=== PATIENT | male | born 1950 | race Caucasian/White ===

== ENCOUNTER 2017-08-03 20:33 | Inpatient (IN) | payer OTHER ==
[~2017-08-03] VITALS: Ht 183 cm; Wt 125.3 kg
[2017-08-03] VITALS (7 sets, daily range): BP systolic 114–135; BP diastolic 65–91
--- NOTE | ~2017-08-03 | S ---
[facility] [place] [address] SURGICAL PATH RPT PROCEDURE Name: SHIRA WARD Room #: 361-P DIS IN M.R.#: [id number] Admission: 08/03/17 Date of : 48 Discharge: 08/22/17 Report #: [id number] Path Case #: [id number] PATHOLOGY REPORT COLLECTION DATE: 08/09/2017 RECEIVED DATE: 08/09/2017 SUBMITTING PHYS: Dr. Praveen Stone OTHER PHYS: Dr. Mukul Magana ADDENDUM REPORT (Order Date: 08/15/2017 09:26) ADDENDUM COMMENT: At the request of the [facility] cancer committee, mismatch repair (MMR) protein immunohistochemical staining was performed. Specimen: Formalin fixed paraffin embedded tissue Specimen ID: [id number] Reason for testing: To evaluate for evidence of defective mismatch repair proteins. Method: Immunohistochemical staining for the presence or absence of protein expression of one or more of the following MMR protein markers: MLH1, MSH2, MSH6 and PMS2. Tumor type: Mucinous adenocarcinoma Results: MLH1 - Lost MSH2 - Preserved MSH6 - Preserved PMS2 - Lost Mismatch Repair Status: MMR Deficient (MMR-D) Interpretation: (MMR-D) The absence of expression for one or more MMR protein markers within tumor cells is suggestive for defective mismatch repair function often associated with microsatellite instability (MSI). MMR testing by IHC is a screening test and MMR-D cases require confirmation and additional workup by molecular based methodologies. Suggest clinical correlation and follow up to establish the need for potential genetic testing, recurrence risk evaluation and treatment options. These test results are designed for screening purposes only and are useful tools in identifying cancer patients that are more likely to have Ham Syndrome related diagnoses. Tests should be interpreted in the context of clinical findings, family history and laboratory data. Abnormal IHC results for MMR protein expression are not considered diagnostic for Ham Syndrome. (MAP:[facility]; 08/15/2017) Professional services performed under supervision of [facility] at [address] [place] [address]. Technical services performed by [facility] under supervision of a [facility] [address] [place] [address] SURGICAL PATH RPT PROCEDURE Name: SHIRA WARD Room #: 361-P DIS IN .R.#: [id number] Admission: 08/03/17 Date of : 48 Discharge: 08/22/17 Report #: [id number] Path Case #: [id number] Director at [address] [place] [address], [facility] [address] [place] [address]. ELECTRONICALLY SIGNED BY: Trent Lee M.D. DATE/TIME:08/15/2017 09:53 SPECIMEN(S) RECEIVED: A.Right colon B.Right colon staple lines * * * * * * * * * * * * FINAL DIAGNOSIS: A. Colon, right, right hemicolectomy: - Invasive mucinous adenocarcinoma, moderately differentiated. - Margins uninvolved by carcinoma. - Seventeen benign lymph nodes (0/17). - Appendix with fibrosis. - Acute serositis. - See synoptic report and comment. B. "staple lines": - Colon and small bowel, negative for carcinoma. SPECIMEN Specimen: Terminal ileum Cecum Appendix Ascending colon Procedure: Right hemicolectomy TUMOR Primary Tumor Site: Right (ascending) colon Histologic Type: Mucinous adenocarcinoma Histologic Grade: Low-grade (well differentiated to moderately differentiated) Tumor Size: Greatest dimension (cm): 8.5 Tumor Deposits: Not identified Tumor Extent Site(s) of Direct Extent of Tumor: Right (ascending) colon Microscopic Tumor Extension: Tumor invades through the muscularis propria into the subserosal adipose tissue or the nonperitonealized pericolic or perirectal soft tissues but does not extend to the serosal surface Macroscopic Tumor Perforation: Not Identified Accessory Tumor Findings Lymph-Vascular Invasion: Not identified Perineural Invasion: Not identified Treatment Effect (applicable to carcinomas treated with neoadjuvant therapy): Not known [address] [address] SURGICAL PATH RPT PROCEDURE Name: SHIRA WARD Room #: 361-P DIS IN M.R.#: [id number] Admission: 08/03/17 Date of : 48 Discharge: 08/22/17 Report #: [id number] Path Case #: [id number] MARGINS All margins uninvolved by invasive carcinoma Distance of Invasive Carcinoma from Closest Margin: Specify (cm): 3.5 Specify Margin: Circumferential (Radial) or Mesenteric For Resection Specimens Only Proximal Margin: Uninvolved by invasive carcinoma Distance of Tumor from Margin: Specify (cm): 17 Distal Margin: Uninvolved by invasive carcinoma Distance of Tumor from Margin (required only for rectal tumors): Specify (cm): 6 Circumferential (Radial) Margin: Not applicable Mesenteric Margin: Uninvolved by invasive carcinoma Distance of Tumor from Margin: Specify (cm): 3.5 LYMPH NODES Regional Lymph Nodes: Number of Lymph Nodes Examined: Specify number: 17 Number of Lymph Nodes Involved: Specify number: 0 STAGE (PTNM) Primary Tumor (pT): pT3: Tumor invades through the muscularis propria into pericolorectal tissues Regional Lymph Nodes (pN): pN0: No regional lymph node metastasis ADDITIONAL FINDINGS Additional Pathologic Findings: Other: Acute serositis COMMENT: This case is co-reviewed by Dr. Ruth Ann Lu. MSI status will be reported as an addendum. PATHOLOGIST: Trent Lee M.D. REPORT ELECTRONICALLY SIGNED BY: Trent Lee M.D. DATE/TIME: 08/12/2017 09:55 * * * * * * * * * * * * GROSS PATHOLOGY: A. The specimen is received in formalin, labeled "Errola, right colon", and consists of a previously opened portion of large bowel including cecum, appendix, attached portion of terminal ileum and mesenteric soft tissue weighing 601 g. It consists of a colonic segment (20 cm middle length 10 cm in circumference), ileum (12.[address] [address] SURGICAL PATH RPT PROCEDURE Name: ERROLSHIRA Canela Room #: 361-P [facility] IN .R.#: [id number] Admission: 08/03/17 Date of : 48 Discharge: 08/22/17 Report #: [id number] Path Case #: [id number] in length 4.5 cm in circumference), appendix (4 cm in length 1.1 cm in diameter) and attached mesenteric soft tissue measuring up to about 6 cm in width. The serosal surface located about 8 cm from the colonic resection margin has an area of slight retraction measuring about 1.5-2 cm. Portions of the serosa and mesenteric soft tissue surfaces are marked with dye. Located 17 cm from the ileal resection margin, 6 cm from the colonic resection margin and 3.5 cm from the closest mesenteric resection margin is an elevated fungating neoplasm consistent with carcinoma which is nearly circumferential and measures 8.5 0.5 cm. The neoplasm has elevated peripheral borders and a central concave region. It is located about 5 cm distal to the ileal cecal valve. The tumor invades the muscularis propria and has a few areas of possible superficial invasion of the adjacent pericolonic adipose. Near the midportion of the appendix is a possible saccular out pouched area of the appendiceal wall measuring about 0.5 cm in diameter. Adjacent to the neoplasm is a black tattoo. The remainder of the colonic mucosa away from the neoplasm is without polyps or additional masses. Several lymph nodes are identified with the attached mesenteric soft tissues. Copy Reader sections are submitted as follows: En face sections of ileal, colonic and mesenteric resection margins A1, A2 and A3 respectively, tumor and adjacent serosa A4, tumor with areas of possible invasion of pericolonic adipose A5- A 6, tumor and adjacent colonic wall A7, appendix and adjacent saccular area A 8, other sections of appendix A9 and several possible mesenteric lymph nodes in their entirety A 10- A 12. B. The specimen is received in formalin, labeled "Boonstra, right: Staple lines", and a single elongate portion of colonic wall measuring about 5.5 1.5 cm and the mucosal surface and up to 0.3 cm in thickness. Attached to one aspect is a suture. Section reveals some ronald within the tissue including a staple line in the midportion measuring about a centimeter in length. The mucosal surface is without significant abnormalities. All tissue is submitted designated B1-B2. (CW; 08/10/2017) INTRAOPERATIVE CONSULTATION CLINICAL HISTORY: Pre-Op diagnosis: Right colon cancer Postop diagnosis: Same INITIAL CPT CODE(S): A; 88404, 37581, 81885, 61113, 07396, 34291, 89632 B; 76049 [facility] at [address] [address] SURGICAL PATH RPT PROCEDURE Name: SHIRA WARD Room #: 361-P [facility] IN M.R.#: [id number] Admission: 08/03/17 Date of : 48 Discharge: 08/22/17 Report #: [id number] Path Case #: [id number] , [place] [address] [facility] at [address] [place] [address], [address], [place] [address]. PROCEDURE REPORT (Order Date: 08/17/2017 00:00) COMMENT: The slides were marked for testing, and sent at the request of Dr. Praveen Stone. BRAF testing was performed by [facility] on block A7. Please see SCANNED IMAGES under LABORATORY for separate report of results. (MAP:[facility]; d/t: 08/23/2017) PATHOLOGIST: Trent Lee M.D. REPORT ELECTRONICALLY SIGNED BY: Trent Lee M.D. DATE/TIME: 08/23/2017 11:18 [facility] [address] [place] [address] PHONE: [phone] DIRECTOR: Iván Garcia M.D. * * * END OF REPORT * * *
--- NOTE | ~2017-08-03 | HC ---
[facility] [place] [address] CONSULTATION Name: SHIRA WARD Room #: 350-P ADM IN M.R.#: [id number] Admission: 08/03/17 Attend Phys: Mukul Castro DO Discharge: Date of : 48 Report #: [id number] THIS REPORT FOR: //name// CC: [facility] physician/PCP Mukul Magana DATE OF SERVICE: 08/09/2017 REASON FOR CONSULTATION: Hepatic flexure mass. HISTORY OF PRESENT ILLNESS: This is a 66-year-old male patient who was transferred to [facility] from [facility] on 08/03/2017, with an acute lower GI bleed. The patient presented there with hematochezia. He underwent a bleeding scan, found to be negative. He underwent both upper and lower endoscopy. His upper endoscopy was normal with a properly positioned PEG tube. His colonoscopy revealed a malignant appearing mass in the right colon with multiple other polyps removed as well as left-sided diverticulosis. I have been asked to see the patient for further evaluation and treatment. Notably, the mass was large, near obstructing, and quite friable on endoscopy. PAST MEDICAL HISTORY: Significant for left parietal CVA with right hemiparesis, expressive aphasia, hyperlipidemia, COPD, history of alcohol use, anemia, and depression. PAST SURGICAL HISTORY: Includes previous tonsillectomy and adenoidectomy, cholecystectomy and repair of a right tib-fib fracture with skin grafting. MEDICATIONS: Include aspirin, Plavix, atorvastatin, hydrocodone, Lidoderm patch, Soma, venlafaxine, and Ventolin inhaler. He receives Jevity tube feeds. ALLERGIES: To CODEINE. FAMILY HISTORY: Reviewed and noncontributory to this hospitalization. SOCIAL HISTORY: The patient had used both alcohol and tobacco in the past. REVIEW OF SYSTEMS: As per history of present illness. Other review of systems is obtained from the medical record as he has severe expressive aphasia. PHYSICAL EXAMINATION: VITAL SIGNS: Temperature 99.5, blood pressure 133/70, pulse 84, respirations 16, height 6 feet, weight 264 pounds, BMI 36. GENERAL: This is a 66-year-old male patient, in no acute distress. He has expressive aphasia. [address] [address] CONSULTATION Name: SHIRA WARD Room #: 350-P ADM IN M.R.#: [id number] Admission: 08/03/17 Attend Phys: Mukul Castro DO Discharge: Date of : 48 Report #: [id number] HEENT: Atraumatic, normocephalic with moist mucosal membranes. NECK: Supple. No appreciable lymphadenopathy. Trachea is midline. CHEST: Clear bilaterally. No crackles or wheezes. CARDIOVASCULAR: Regular rate and rhythm. ABDOMEN: Soft and nondistended with no palpable masses. An irreducible umbilical hernia is present. He has no rebound or guarding. A PEG tube is present in the left upper quadrant of the abdomen. GENITOURINARY: Normal external male genitalia with a Jones catheter in place. EXTREMITIES: No clubbing or cyanosis; he has venous stasis changes of both lower extremities and obvious right lower leg deformity with fluctuant area. NEUROLOGIC: Expressive aphasia with right-sided weakness. PSYCHIATRIC: Unable to assess. SKIN AND INTEGUMENTARY: No acute inflammatory changes, rashes, or lesions are present. LABORATORY DATA: CBC from this morning shows a white blood cell count of 7.0, hemoglobin 11.3, hematocrit 34.2 and platelets 222 with 68% segmented neutrophils. His basic metabolic profile shows sodium 142, potassium 3.3, chloride 105, CO2 of 29, BUN 4, creatinine 0.5, and glucose 92. RADIOLOGIC STUDIES: CT of the abdomen and pelvis showed stranding around the right colon with occasional diverticula and small gas collections as well as a small amount of gas adjacent to the hepatic flexure, infiltrate was also present in the right lung base. No free intraperitoneal air or abscess was identified. IMPRESSION AND PLAN: This is a 66-year-old male patient with history of a recent stroke this past June who presented with a gastrointestinal bleed and was found to have an unresectable hepatic flexure mass, near obstructing, and the likely cause of the gastrointestinal bleed. A CEA level has been ordered. I discussed the pathophysiology and natural history of a nonresectable polyp/possible colon cancer as well as treatment alternatives and surgical options. The patient would benefit from a right hemicolectomy due to strong suspicion of malignancy. We discussed the risks, benefits and expectations of robotic-assisted right hemicolectomy in detail. The patient expressed understanding and wishes to proceed. He will be taken to the operating room at the next earliest availability. I sincerely appreciate the opportunity to participate in the care of this patient and we will leave further recommendations and orders in the electronic medical record as appropriate. Thank you very much. <ELECTRONICALLY SIGNED> By: Rigoberto Magana MD, FACS 08/10/17 0000 1539 1707 Rigoberto Magana MD, FACS /nt
--- NOTE | ~2017-08-03 | P ---
[facility] [place] [address] PROCEDURE REPORT Name: EUGENIESTACIERolaSHIRA Armendariz Room #: 350-P ADM IN M.R.#: [id number] Admission: 08/03/17 Attend Phys: Mukul Castro DO Discharge: Date of : 48 Report #: [id number] THIS REPORT FOR: //name// CC: [facility] physician/PCP Mukul Stone MD DATE OF SERVICE: 08/08/2017 DATE OF SERVICE: 08/08/2017 PROCEDURE PERFORMED: Colonoscopy with polypectomies and tattoo. HISTORY OF PRESENT ILLNESS: The patient is a 66-year-old male with GI bleed, upper endoscopy was just performed, which was negative. He had been on aspirin and Plavix since a recent CVA. This has now been held. Plan is for colonoscopy. DESCRIPTION OF PROCEDURE: The risks and benefits of the procedure were explained to the patient. Those risks including but not limited to bleeding, perforation, the risk of sedation. He understood these risks and gave informed consent. Sedation was given using propofol per anesthesia. Next, a digital rectal exam was initially performed, which was normal. Next, using a standard [employer] colonoscope, the scope was placed in the patient's anus and advanced under direct vision to what appears to be the ascending colon, in which a malignant-appear mass versus large near obstructing polyp was encountered. This included the entire circumference of the colon in this area. It appears again we are in the proximal ascending colon, but I was not able to pass the scope through this area. Multiple biopsies were obtained and the edges were tattooed. Just distal to this were 2 lipomas, which were submucosal, I did not remove. Also, in then the ascending colon were 3 other polyps. These ranged in size from 5 to 7 mm, these were removed by snare cautery. In the transverse colon, a total of 2 polyps were also removed by snare cautery. They were 4 to 6 mm in size. In the descending colon, a 6-mm sessile polyp or partially pedunculated polyp was removed by snare cautery. Multiple diverticula were noted throughout the sigmoid colon. In the rectum, there was a 4 mm sessile polyp. This was removed by cold forceps. There was no active bleeding today; however, the malignant-appearing mass did have evidence of friability. The scope was then withdrawn and the procedure terminated. The patient tolerated the procedure well. IMPRESSION: 1. Malignant-appearing mass in the right colon, suspect ascending colon. 2. Multiple other polyps removed today. 3. Left sided diverticulosis. [address] [address] PROCEDURE REPORT Name: SYLVIASHIRA Kala Room #: 350-P [facility] IN M.R.#: [id number] Admission: 08/03/17 Attend Phys: Mukul Castro DO Discharge: Date of : 48 Report #: [id number] RECOMMENDATIONS: 1. Await biopsy results. 2. We will proceed with a CT scan of the abdomen and pelvis. 3. Surgical consultation for resection of the mass in the near future. Thank you for allowing me to participate in his care. <ELECTRONICALLY SIGNED> By: Tan Roque MD 08/09/17 0906 [id number] 1531 Tan Roque MD /nt
--- NOTE | ~2017-08-03 | EKG ---
[address] [address] ELECTROCARDIOGRAM REPORT Name: SHIRA WARD Room #: 246-P ADM IN M.R.#: [id number] Admission: 08/03/17 Attend Phys: Mukul Castro DO Discharge: Date of : 48 Report #: [id number] THIS REPORT FOR: //name// [facility] Test Date: 2017-08-11 Test Time: 06:44:30 Pat Name: SHIRA WARD Department: Room: 246 Gender: M Embroidery Operator: ROSI : 1950 Requested By: Mukul Castro Order Number: [id number] MD: Rich Herring Measurements Intervals [place] Rate: 127 P: 49 MS: 138 QRS: 47 QRSD: 87 T: 12 QT: 299 QTc: 435 Interpretive Statements Sinus tachycardia with atrial premature complexes Abnormal R-wave progression, early transition Nonspecific ST and T wave abnormality Artifact in lead(s) I,II,III,aVR,aVL,aVF,V1,V6 No previous ECG available for comparison Electronically Signed On 08-11-2017 7:55:06 CDT by Rich Herring [email or web address] <ELECTRONICALLY SIGNED> By: Rich Herring MD, [facility] 08/11/17 [phone] Rich Herring MD, [facility] /EPI
--- NOTE | ~2017-08-03 | P ---
[facility] [place] [address] PROCEDURE REPORT Name: SYLVIASHIRA Armendariz Room #: 350-P ADM IN M.R.#: [id number] Admission: 08/03/17 Attend Phys: Mukul Castro DO Discharge: Date of : 48 Report #: [id number] THIS REPORT FOR: //name// CC: [facility] physician/PCP Mukul Stone MD DATE OF SERVICE: 08/08/2017 PROCEDURE PERFORMED: Upper endoscopy. HISTORY OF PRESENT ILLNESS: The patient is a 66-year-old male with a history of CVA recently, he has residual right hemiparesis and aphasia, came in with a GI bleed, he has been on aspirin and Plavix since his CVA, unclear if he has ever had a previous endoscopy. His aspirin and Plavix has been held since admission. He had a bleeding scan that was initially negative. Plan is for EGD and colonoscopy today. PROCEDURE: The risks and benefits of the procedure were explained to the patient, those risks including, but not limited to bleeding, perforation, and the risk of sedation. He understood these risks and gave informed consent. Sedation was given using propofol per anesthesia. Next, using a standard [employer] upper endoscope, the scope was placed in the patient's mouth and advanced under direct vision through the esophagus, stomach and into the second portion of the duodenum. The esophagus was normal throughout. The GE junction was normal. Overall, the gastric mucosa was normal. The patient's PEG tube balloon was noted to be in good position in the mid body of the stomach. The pylorus was normal and patent. The duodenal bulb, first and second portion were all normal. There was no evidence of bleeding, no ulcerations. The scope was then withdrawn and the procedure terminated. The patient tolerated the procedure well. IMPRESSION: 1. PEG tube in proper position. 2. Otherwise, normal upper endoscopy. RECOMMENDATIONS: We will proceed with colonoscopy next today. Thank you for allowing me to participate in his care. <ELECTRONICALLY SIGNED> By: Tan Roque MD 08/09/17 0906 [id number] [id number] Tan Roque MD /nt
--- NOTE | ~2017-08-03 | O ---
[facility] [place] [address] OPERATIVE REPORT Name: EUGENIESTACIESHIRA Canela Room #: 350-P ADM IN M.R.#: [id number] Admission: 08/03/17 Attend Phys: Mukul Castro DO Discharge: Date of : 48 Report #: [id number] THIS REPORT FOR: //name// CC: Tan Roque MD [facility] physician/PCP Mukul Magana MD DATE OF SERVICE: 08/09/2017 SURGEON: Rigoberto Magana MD GAS ENGINE MECHANIC: Clarisse Simpson NP PREOPERATIVE DIAGNOSES: 1. Hepatic flexure mass. 2. Left hemispheric stroke with right hemiparesis, expressive aphasia and dysphagia. 3. Chronic obstructive pulmonary disease. 4. Hyperlipidemia. 5. Right lower extremity deformity. 6. Umbilical hernia. POSTOPERATIVE DIAGNOSES: 1. Hepatic flexure mass. 2. Left hemispheric stroke with right hemiparesis, expressive aphasia and dysphagia. 3. Chronic obstructive pulmonary disease. 4. Hyperlipidemia. 5. Right lower extremity deformity. 6. Incarcerated umbilical hernia. PROCEDURES: 1. Robotic-assisted, converted to open right hemicolectomy. 2. Partial omentectomy. 3. Primary repair of incarcerated umbilical hernia. 4. Placement of topical wound VAC/Prevena. 5. This is a modifier 22 operation based on the patient's obesity with a BMI of 36, difficult visualization despite adequate positioning, adherence of the colon to the liver and duodenum, friability of the colon associated with the mass, and a short, fat mesentery. The operation was substantially longer than a typical robotic/laparoscopic-assisted right hemicolectomy. It required conversion to an open procedure. [facility] [address] [place] [address] OPERATIVE REPORT Name: SHIRA WARD Room #: 350-P [facility] IN M.R.#: [id number] Admission: 08/03/17 Attend Phys: Mukul Castro DO Discharge: Date of : 48 Report #: [id number] ANESTHESIA: General endotracheal anesthesia and local anesthetic. ESTIMATED BLOOD LOSS: 50 mL. SPECIMEN: Right colon. COMPLICATIONS: None appreciated. INDICATIONS FOR PROCEDURE: This is a 66-year-old male patient who was transferred to [facility] with a GI bleed. The patient had been on Plavix for a recent left hemispheric stroke and has had a PEG tube in place for dysphagia. The patient has expressive aphasia as well. He underwent both upper and lower endoscopy. Lower endoscopy revealed a near obstructing colonic mass felt to be present in the hepatic flexure or ascending colon. The scope was not able to be traversed beyond the mass. The mass itself was friable and was felt to be the cause of the lower GI bleed. The patient underwent a CT of the abdomen and pelvis, which showed no evidence for metastasis. The patient presents today for robotic-assisted laparoscopic right hemicolectomy. OPERATIVE FINDINGS: Upon entrance into the abdominal cavity, the area of colon that was tattooed by Dr. Roque was present just distal to the hepatic flexure. The tattooed area itself was soft; however, just proximal to this area, the colon was more firm and friable. This area was stuck to the underside of the liver and dissection in this area was quite difficult. Due to the friability of the colon, a colotomy was created in this area and ultimately this necessitated conversion to an open procedure. Due to the patient's body habitus and obesity, visualization was difficult as well despite extreme positioning. The patient had moderate amount of intra-abdominal fat. After opening the patient, I was able to resect the mass with good margin. There were no palpable involved lymph nodes. The liver itself was smooth without evidence for metastases and no peritoneal metastases were visible. The PEG tube was intact. The stomach appeared otherwise normal. Small bowel was run from the ligament of Treitz to the ileocecal valve and the small bowel appeared normal without evidence for obstruction. After creation of the [id number] stapled ileotransverse colon resection, there was no tension on the anastomosis. The anastomosis was palpably patent. No other significant intra-abdominal pathology was identified other than an incarcerated umbilical hernia, which was reduced at the time the abdomen was opened. At the conclusion of the operation, the sponge, needle, and instrument counts were correct. The hernia was closed primarily with closure of the midline abdominal wall fascia. DESCRIPTION OF PROCEDURE IN DETAIL: After the risks, benefits, and expectations of the operation were discussed in detail with the patient, informed consent was obtained. The patient was identified in the preoperative holding area. He was given IV antibiotics as documented in the chart in line with SCIP metrics. The [address] [address] OPERATIVE REPORT Name: SHIRA WARD Room #: 350-P [facility] IN M.R.#: [id number] Admission: 08/03/17 Attend Phys: Mukul Castro DO Discharge: Date of : 48 Report #: [id number] patient was then taken to the operating room and he was placed in the supine position. SCDs were placed on the patient's left lower extremity. The patient was given IV sedation and he was intubated without incident. The operating room table was then rotated 180 degrees to accommodate for the da Lopez robot. The patient's abdomen was prepped and draped in the standard sterile fashion. A time-out was performed to identify the correct patient and procedure. Local anesthetic was infiltrated into the skin and subcutaneous tissue in the left periumbilical area where a curvilinear incision was made with a #15 blade scalpel. Dissection was carried down to the umbilical hernia sac. The sac was dissected free. A 5 mm Visiport was then placed intraperitoneally with a 0-degree angled laparoscope. Pneumoperitoneum was achieved with insufflation of carbon dioxide to 15 mmHg. A 30-degree angled laparoscope was inserted. Da Lopez ports were then placed in the right lower quadrant and lower midline under direct visualization after local anesthetic was infiltrated into the skin and subcutaneous tissue and appropriately sized incisions were made. Additional 12 mm ports were placed in the left lower quadrant (the camera port) and the left mid abdomen using a similar technique. The robot was then docked to the da Lopez ports. The 30-degree angled laparoscope was inserted, facing down. Instruments were then placed. All grasping was performed with atraumatic graspers. The patient had been placed in the reverse Trendelenburg position, rotated to his left. Adhesions from the omentum to the falciform ligament were present and these were carefully taken down with electrocautery and appropriate traction. The tattooed area was visible. Due to the patient's body habitus, the right colon was unable to be easily visualized and decision was made to undock the robot, reposition the patient, and redocked the robot. The patient was placed in extreme reverse Trendelenburg position and rotation to his left. The robot was then redocked to the da Lopez ports. This helped to facilitate visualization of the hepatic flexure to a greater extent; however, the right colon was still somewhat difficult to visualize. The omentum was divided off of the colon with electrocautery. The hepatic flexure was then opened with the intuitive vessel sealer. Dissection was carried medially to identify an area of proximal transection. The omentum was divided off the colon in this area as well. Dissection was carried more laterally and the colon was quite adherent to the liver. The tissue in this area was firm. The duodenum was not visualized at this point in time. Due to the friability of the colon, a small colotomy was appreciated and this was in an area where polypoid mass was present. There was minimal spillage of fecal fluid. Decision was made to convert to an open procedure. The robot was undocked from the ports. A sharp #10 blade scalpel was used to make a vertical midline incision in the upper abdomen. Electrocautery was then used to dissect through the subcutaneous tissue down the fascia. The fascia and peritoneal lining were then opened along the length of the incision to include the incarcerated umbilical hernia. The [address] [place] [id number] OPERATIVE REPORT Name: SYLVIASHIRA R Room #: 350-P [facility] IN M.R.#: [id number] Admission: 08/03/17 Attend Phys: Mukul Castro DO Discharge: Date of : 49 Report #: [id number] mm port site fascial openings were closed with 0 PDS suture prior to opening the patient using the laparoscope. The colotomy was oversewn to prevent significant spillage of fecal fluid. The adherent area was then carefully taken down off the liver and the underlying duodenum was able to be visualized. The duodenum was protected throughout. The hepatic flexure was more fully taken down as was the colon along the white line. Dissection was carried down to the cecum where the terminal ileum was seen entering the colon. The mesentery was then opened and divided. A blue load ALBERTO stapler was used to staple and divide the terminal ileum. The distal transection point was then identified 10 cm from the tattooed area. A mesenteric window was created in this area as well. A blue load ALBERTO stapler was used to staple and divide the colon. The mesentery was then divided with the Ethicon x 1 energy device with good hemostasis. The colon and terminal ileum were removed to be sent for specimen. Prior to being sent off, the colon was opened on the backtable to demonstrate the polypoid mass, which was 5 cm long and nearly circumferential. There was some distention of the colon proximal to the mass. Creation of the kbxb-se-artz stapled anastomosis was undertaken next. The antimesenteric corners were excised and each limb of the 75 mm blue load ALBERTO stapler was advanced on each limb of the colon and small bowel. The stapler was then connected and fired to create the htap-nw-ugtp anastomosis. The common enterocolotomy was then approximated with Allis clamps. A blue load TX 60 mm stapler was then used to staple off the common enterocolotomy. The excess tissue was excised. Stapler was removed. The crotch of the anastomosis was reinforced with an anti-tension 3-0 PDS suture. A running 3-0 PDS suture was used to close the mesenteric defect in a running fashion. Interrupted 3-0 PDS Lembert sutures were used to imbricate the staple line. The anastomosis was palpably patent without tension. The abdominal cavity was then copiously irrigated and suctioned until return of all drainage ran clear. After ensuring final hemostasis and that the sponge, needle and instrument counts were correct, the 19-Gu[place] Corey drain was advanced through the abdominal wall and brought out through the right lower quadrant port site opening. The drain was secured to the skin with a 2-0 nylon suture. The drain was positioned intraabdominally along the right pericolic gutter up to the subhepatic space. After ensuring final hemostasis, the midline abdominal wall fascia was closed with a running looped #1 PDS suture. The incarcerated umbilical hernia had been reduced and the fascia closed in this area to repair the hernia. The wound was then irrigated. [place] were used for skin closure. The remaining port site incisions were closed with the skin stapler as well. The skin was then cleansed and dried. The Prevena topical wound VAC device was then applied to the midline incision. A good seal was present after connecting the tubing to the device. The patient tolerated the procedure well. He was awakened, extubated, and taken [address] [address] OPERATIVE REPORT Name: SHIRA WARD Room #: 350-P [facility] IN M.R.#: [id number] Admission: 08/03/17 Attend Phys: Mukul Castro DO Discharge: Date of : 48 Report #: [id number] to recovery room in stable condition with no apparent intraoperative complications. <ELECTRONICALLY SIGNED> By: Rigoberto Magana MD, FACS 08/10/17 0000 1558 1728 Rigoberto Magana MD, FACS /nt
--- NOTE | ~2017-08-03 | HC ---
[facility] [place] [address] CONSULTATION Name: SYLVIASHIRA Kala Room #: 246-P ADM IN M.R.#: [id number] Admission: 08/03/17 Attend Phys: Mukul Castro DO Discharge: Date of : 48 Report #: [id number] THIS REPORT FOR: //name// CC: [facility] physician/PCP Mukul Castro DATE OF SERVICE: 08/11/2017 REASON FOR CONSULTATION: Acute respiratory failure. Forty minutes critical care time. IMPRESSION: 1. Acute respiratory failure requiring BiPAP. 2. Right lower lobe aspiration pneumonia, healthcare associated. 3. Postoperative day 2 right hemicolectomy, partial omentectomy with repair of incarcerated umbilical hernia. 4. Sepsis. 5. History of left MCA with right hemiparesis, aphasia, dysphagia. 6. History of chronic obstructive pulmonary disease. 7. Peripheral edema. 8. History of tib-fib fracture, right leg. PLAN: Continue on BiPAP. The worry is that if he has vomiting again, he will aspirate, but we are trying to avoid intubation. We will try to put the PEG tube to suction if possible. We will monitor closely. Surgery is also involved as well as GI. HISTORY OF PRESENT ILLNESS: A 66-year-old male transferred for lower GI bleed. Colonoscopy showed malignant-appearing mass right colon. The patient was taken to surgery on 08/09/2017, stable, had nausea, vomiting this morning and likely aspiration with chest x-ray showing right infiltrate. No fever or chills. He awakens. PAST MEDICAL HISTORY: Allergies to CODEINE. MEDICATIONS: Include cefoxitin, albuterol, fentanyl. FAMILY HISTORY: Cancer. SOCIAL HISTORY: Positive tobacco and ETOH in the past. The patient is unable to give review of systems, but has a history of CVA, on aspirin and Plavix since June 2017, chronic alcoholic liver disease, left middle cerebral artery bleed, right parietal infarct, PEG tube June 2017, COPD, muscle spasms, depression. PAST SURGICAL HISTORY: Surgeries have included tonsillectomy, cholecystectomy, [facility] [address] [place] [address] CONSULTATION Name: SYLVIASHIRA R Room #: 246-P [facility] IN ..#: [id number] Admission: 08/03/17 Attend Phys: Mukul Castro DO Discharge: Date of : 48 Report #: [id number] right tib-fib. FAMILY HISTORY: Positive for cancer. PHYSICAL EXAMINATION: VITAL SIGNS: Temperature 100.2, pulse 120, respirations 24. GENERAL: Alert, on BiPAP. EYES: Negative icterus. NECK: No JVD. No adenopathy. LUNGS: Coarse bilateral. HEART: Regular. ABDOMEN: Bowel sounds present, tender. PEG tube in place. EXTREMITIES: Showed positive edema, right hemiparesis. LABORATORY DATA: White count 15.9, hemoglobin 11.2, platelets 229, no bands. PH 7.426, pCO2 of 40, pO2 of 55 on room air. Lactate 1.44, CA 8.6. By: 1155 Josefa Valles MD /leandro
--- NOTE | ~2017-08-03 | HC ---
[facility] [place] [address] CONSULTATION Name: SHIRA WARD Room #: 361-P ADM IN M.R.#: [id number] Admission: 08/03/17 Attend Phys: Mukul Castro DO Discharge: Date of : 48 Report #: [id number] THIS REPORT FOR: //name// CC: MERCED Wolff DO [facility] physician/PCP Mukul Magana MD REASON FOR CONSULTATION: Resected, stage 2 colon cancer. HISTORY OF PRESENT ILLNESS: The patient is a 66-year-old gentleman, who resides in a snf down in [place], [place]. Evidently, he had a GI bleed and subsequent evaluation on a colonoscopy by Dr. Roque, found a mid transverse adenocarcinoma. This was resected by Dr. Rigoberto Magana on 08/09/2017. Note that morning his CEA had been drawn, was elevated at 8.3. CAT scan is done before surgery, did not show any evidence of metastasis or liver involvement. Also, chest x-ray is benign. Liver function is otherwise pretty unremarkable. Pathology was notable for loss of MLH1 and PMS2 mismatch repair proteins. Note that the loss of MLHI will lead to inability to measure PMS2, so we will check a [id number] mutation to see if this is a somatic or germline mutation. Note the patient does not report any family history of colon cancer, uterine cancer or polyps, but it sounds like he is not up-to-date on his family. The tumor was described as approximately 8.5 cm, pathology was T3, none of 17 lymph nodes were involved. There was no lymphovascular or perineural invasion, and no satellite nodules were seen. PAST MEDICAL HISTORY: Notable for history of a left middle cerebral artery stroke with right hemiparesis, aphasia and dysphagia in June of 2016. The patient is very hard to understand, though we can communicate. He also has a history of chronic alcoholism, alcoholic liver disease, PEG tube since 06/22/2017, history of hyperlipidemia, COPD, lower back pain, sciatica, major depressive disorder, tonsillectomy, cholecystectomy, right tib-fib fracture in the past. 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 Not currently smoking or drinking as he has been in the snf. FAMILY HISTORY: Seems unremarkable for colon or uterine cancers or polyps. MEDICATIONS AT THIS TIME IN THE HOSPITAL CURRENTLY: Include Tylenol p.r.n., Augmentin 875 b.i.d., electrolyte replacement protocol, sliding scale insulin, albuterol, respiratory therapy treatments, metoclopramide 5 mg q. 6 hours p.r.n., Benadryl p.r.n., hydroxyzine p.r.n., Percocet q. 4 hours p.r.n. [address] [address] CONSULTATION Name: SHIRA WARD Room #: 361-P [facility] IN M.R.#: [id number] Admission: 08/03/17 Attend Phys: Mukul Castro DO Discharge: Date of : 48 Report #: [id number] PHYSICAL EXAMINATION: GENERAL: The patient appears his stated age, very poor dentition, in the hospital bed with a PEG feeding tube, very hard time understanding his communication. VITAL SIGNS: Height in the past has been reported 6 feet, 183 cm, weight is 276 pounds 3.8 ounces or 125 kg. Recent blood pressure is 109/50, respirations are 18, pulse 92, low-grade temp of 100.3, though it was 101.9 axillary last night at 8:00. NEUROLOGIC: The patient appears to comprehend speech and is able to try to gesture with his left hand and is able to vocalize, but it is very hard to understand. Dentition is very poor. The patient does seem to be describe some lower right jaw discomfort, there may be some slight discoloration of a gumline, but not too remarkable. LUNGS: Do have some soft rhonchi and rales that clear with coughing. HEART: Appears regular rate. LYMPHATICS: No enlarged lymph nodes in the supraclavicular, cervical, axillary or inguinal region. ABDOMEN: Postop, does have several dressings in place, seems appropriately, mildly uncomfortable when examining. No definite masses. EXTREMITIES: Without clubbing, cyanosis. There is some trace edema. LABORATORY REVIEW: Recent BUN 8, creatinine 0.6. Liver function is normal. Albumin 2.5, total bili 0.4. Coags in July were normal. Iron studies back then showed a percent saturation of 42, iron of 84, this is in July 2017. Recent white count 11.6, hemoglobin 9.3, MCV 87.7, platelet count 331. Differential is fairly unremarkable. Folate and B12 have been checked recently. Note that CEA on June 09 at 4:20 in the morning was 8.6. Imaging done here includes a CT abdomen and pelvis on June 08, that showed stranding around the right colon, but nothing to suggest metastatic disease, lung bases appear to be clear. The patient has also a chest x-ray last done on August 16 that showed mild worsening of subsegmental left basal atelectasis, stable right small trace pleural effusion, no masses. DISCUSSION: I talked with the patient a little about the probable need of additional testing his tumor as it was both MLH1 and PMS2 lost. This PMS2 can be lost because it cannot bind with MLH1 when it is gone. We will also check [id number] mutation testing. If this BRAF mutation is present it can cause a loss or misexpression of MLH1. My understanding is that if the patient has a BRAF mutation, it is unlikely he has Ham syndrome as my understanding. I also talked to the patient given that he has a node negative colon cancer, he will most likely not benefit from chemotherapy. We will need to follow up on his CEA to see if it normalizes. The patient would be a difficult candidate to take chemotherapy, I would be leery to undertake that given his multiple health issues. We had a long discussion with he and his other support care to see if that would be advisable. [address] [address] CONSULTATION Name: SHIRA WARD Room #: 361-P [facility] IN ..#: [id number] Admission: 08/03/17 Attend Phys: Mukul Castro DO Discharge: Date of : 48 Report #: [id number] ASSESSMENT AND PLAN: 1. Stage 2 T3N0 17 node negative colon cancer with preop CEA of 8.6 and loss of MLH1 and PMS2. At this time, we will await BRAF mutation testing and also we will probably suggest repeat CEA in about 4-6 weeks to see if it normalizes. If not, we should probably consider additional scans, such as a PET scan. I doubt this patient would be a good candidate for adjuvant chemotherapy. He may be appropriate for NCCN surveillance, which would suggest visits every 3 months for the first one or two years and 6 months after that with lab and clinical exams. 2. Abnormal MLHI and PMS2 as above. Await BRAF mutation test. 3. Elevated preop CEA. Await repeat testing at 4-6 weeks after surgery. 4. History of left middle cerebral artery infarct with severe hemiparesis, aphasia and dysphagia. Defer to others. 5. History of hyperlipidemia. Defer to others. 6. COPD. Defer aerosols, meds per others. 7. Dysphagia. Continues PEG feeding. We will be available for questions. <ELECTRONICALLY SIGNED> By: Meng Damon MD 08/19/17 0713 2 1050 Meng Damon MD /nt
--- NOTE | ~2017-08-03 | HC ---
[facility] [place] [address] CONSULTATION Name: SYLVIASHIRA Kala Room #: 246-P ADM IN M.R.#: [id number] Admission: 08/03/17 Attend Phys: Mukul Castro DO Discharge: Date of : 48 Report #: [id number] THIS REPORT FOR: //name// CC: MAR physician/PCP Mukul Castro REASON FOR CONSULTATION: I was asked to evaluate the patient concerning aspiration, healthcare-associated pneumonia. HISTORY OF PRESENT ILLNESS: The patient was a 66-year-old with previous stroke and right-sided hemiparesis and aphasia who was hospitalized at [facility] due to GI bleed. Transferred from there to [facility] on 08/03/2017. Upper endoscopy was unremarkable. Lower endoscopy showed evidence of an obstructing mass in the ascending colon. On 08/09/2017, Dr. Magana performed laparotomy with colon resection. This was a difficult procedure due to several factors. There was no evidence of metastatic disease. He did repair of ventral hernia. Postoperatively, was stable until this morning; had nausea, vomiting, concern for aspiration, was brought down to the Intensive Care Unit, now on BiPAP. He is now alert, does complain of abdominal pain and nausea. He has a G-tube now to suction. No fever, chills or sweats. He is on no pressors. Urine output has been reasonable. There has been no cough or sputum production. ALLERGIES: CODEINE. MEDICATIONS: Included Cefoxitin and this morning was added clindamycin. PAST MEDICAL HISTORY: Alcoholic liver disease. 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 He has had a PEG tube since June 2016. Hyperlipidemia, COPD, lumbar back pain, depression, cholecystectomy, tonsillectomy, right tib-fib fracture. FAMILY HISTORY: Cancer. SOCIAL HISTORY: He is a past smoker and past alcohol use. REVIEW OF SYSTEMS: The patient was unable to give any further details for he is on the BiPAP in the he pain. PHYSICAL EXAMINATION: VITAL SIGNS: Maximum temperature is 100.2 axillary, pulse 120, blood pressure 137/66. GENERAL: He was alert and cooperative. On BiPAP at 40%. SKIN: Unremarkable. LYMPH: Unremarkable. EYES: Unremarkable. NECK: Supple. [address] [address] CONSULTATION Name: SHIRA WARD Kala Room #: 246-P [facility] IN M.R.#: [id number] Admission: 08/03/17 Attend Phys: Mukul Castro DO Discharge: Date of : 48 Report #: [id number] LUNGS: Coarse breath sounds of right base posteriorly. HEART: Regular, without murmur. ABDOMEN: Diffusely tender. PEG site was unremarkable. Midline incision with a Prevena dressing and right lower quadrant drain with serosanguineous fluid. EXTREMITIES: Unremarkable. Right hemiparesis face, arm and leg. LABORATORY STUDIES: Hemoglobin 11.2, platelet count 229,000, WBC 15.9. Differential, 88% segs, 6% lymphs, 6% monocytes. Sodium 139, potassium 3.8, bicarbonate 24, creatinine 0.7. Path report is pending. Chest x-ray: Infiltrate atelectasis in the right lower lobe. CEA 8.6. IMPRESSION: A 66-year-old with: 1. Postoperative day 2, right hemicolectomy and partial omentectomy with repair of incarcerated umbilical hernia. 2. Aspiration, right lower lobe pneumonia, healthcare-associated. This is associated with sepsis, noting tachycardia, leukocytosis, respiratory failure and low-grade fever. RECOMMENDATIONS: Recommend continuing IV antibiotic therapy for healthcare-associated organisms. Screen for MRSA. Repeat chest x-ray. Laboratory studies in the a.m. I have discussed with primary care team and nursing at the bedside. <ELECTRONICALLY SIGNED> By: Braulio Major MD 08/12/17 0830 0945 1028 Braulio Major MD /nt
--- NOTE | ~2017-08-03 | S ---
[facility] [place] [address] SURGICAL PATH RPT PROCEDURE Name: SHIRA WARD Room #: 350-P ADM IN M.R.#: [id number] Admission: 08/03/17 Date of : 48 Discharge: Report #: [id number] Path Case #: [id number] PATHOLOGY REPORT COLLECTION DATE: 08/08/2017 RECEIVED DATE: 08/08/2017 SUBMITTING PHYS: Dr. Tan Roque OTHER PHYS: Dr. Mukul Castro SPECIMEN(S) RECEIVED: A.Transverse colon polyp x2 B.Ascending colon mass bx C.Ascending colon polyp x3 D.Descending colon polyp E.Rectal polyp * * * * * * * * * * * * FINAL DIAGNOSIS: A. Colon, transverse, biopsy: - Tubular adenoma, two fragments. - Negative for high grade dysplasia. B. Colon, ascending, biopsy: - Adenoma with at least high grade dysplasia. - See comment. C. Colon, ascending, biopsy: - Tubular adenoma, multiple fragments. - Negative for high grade dysplasia. D. Colon, descending, biopsy: - Tubular adenoma. - Negative for high grade dysplasia. E. Rectum, biopsy: - Colonic mucosa with focal hyperplastic change. COMMENT: Due to the fragmented and superficial nature of the specimen in part B, an invasive process cannot be excluded. This case is co-reviewed by Dr. Ruth Ann Lu. A voicemail was left with Dr. Roque's nurse Alyssia on 08/09/2017 at 2:33 PM. PATHOLOGIST: Trent Lee M.D. REPORT ELECTRONICALLY SIGNED BY: Trent Lee M.D. DATE/TIME: 08/09/2017 14:45 * * * * * * * * * * * * GROSS PATHOLOGY: [address] [address] SURGICAL PATH RPT PROCEDURE Name: SHIRA WARD Room #: 350-P ADM IN .R.#: [id number] Admission: 08/03/17 Date of : 48 Discharge: Report #: [id number] Path Case #: [id number] A. Received in formalin labeled "Shira Ward, transverse colon polyp 2," are 2 segments of abebe soft tissue measuring 0.8 x 0.4 x 0.6 cm in aggregate dimensions and ranging from 0.4 to 0.4 cm in maximum dimension. The specimen is submitted entirely in cassette A1. B. Received in formalin labeled "Shira Ward, ascending colon BX," are 3 segments of abebe soft tissue measuring 0.9 x 0.5 x 0.2 cm in aggregate dimensions and ranging from 0.3 to 0.5 cm in maximum dimension. The specimen is submitted entirely in cassette B1. C. Received in formalin labeled "Shira Ward, ascending colon polyp," are multiple (more than 10) segments of abebe soft tissue measuring 2.4 x 1.3 x 0.4 cm in aggregate dimensions and ranging from 0.1 to 0.5 cm in maximum dimension. The specimen is submitted entirely in cassette C1. D. Received in formalin labeled "Shira Ward, descending colon polyp," is a 1.0 x 0.5 x 0.8 cm polypoid piece of abebe soft tissue. The margin is inked and the tissue is sectioned perpendicular to the margin and submitted in its entirety in cassette D1. E. Received in formalin labeled "Shira Nortona, rectal polyp," is a segment of abebe soft tissue measuring 0.3 cm in maximum dimension. The specimen is submitted entirely in cassette E1. (TSD; 08/08/2017) CLINICAL HISTORY: GI bleed, colon mass, colon polyps, diverticulosis INITIAL CPT CODE(S): A; 11421 B; 52490 C; 90027 D; 69891 E; 30451 Professional services performed by [facility] at [place] [address], [place] [address] Technical services performed by [facility] at [address] [place] [address], [address], [place] [address]. [facility] [place] [address] PHONE: [phone] DIRECTOR: Iván Garcia M.D. * * * END OF REPORT * * *
[2017-08-03 21:51] LABS: ABSOLUTE NEUTROPHILS 6.8 thou/uL (1.4-8.2); BASOPHILS 0.7 % (0.0-2.0); EOSINOPHILS 2.6 % (0.0-3.0); HEMATOCRIT 34.4 % (42.0-52.0); HEMOGLOBIN 11.6 gm/dL (14.0-18.0); LYMPHOCYTES 20.9 % (24.0-44.0); MCH 30.2 pg (26.0-34.0); MCHC 33.7 g/dL (28.0-37.0); MCV 89.6 fL (80.0-100.0); MONOCYTES 6.9 % (1.0-8.0); PLATELET COUNT 227 thou/uL (150-400); POLYS 68.9 % (36.0-66.0); RBC 3.84 mil/uL (4.50-6.00); RDW 14.8 % (10.5-14.5); WBC 9.9 thou/uL (4.0-11.0)
[2017-08-03 21:53] LABS: MANUAL DIFF NO
[2017-08-03 22:00] LABS: CALCIUM 8.5 mg/dL (8.5-10.1); CREATININE 0.5 mg/dL (0.7-1.3)
[2017-08-03 22:05] LABS: ALBUMIN 2.5 g/dL (3.4-5.0); TOTAL BILIRUBIN 0.4 mg/dL (<0.1-1.0)
[2017-08-03 22:07] LABS: INR 1.1; PROTIME 10.8 Seconds (9.3-11.4)
[2017-08-04] VITALS (50 sets, daily range): BP systolic 89–122; BP diastolic 44–73
[2017-08-04 06:02] LABS: HEMATOCRIT 33.9 % (42.0-52.0); HEMOGLOBIN 11.2 gm/dL (14.0-18.0); MCH 29.9 pg (26.0-34.0); MCHC 33.1 g/dL (28.0-37.0); MCV 90.4 fL (80.0-100.0); RBC 3.75 mil/uL (4.50-6.00); RDW 14.5 % (10.5-14.5); WBC 6.7 thou/uL (4.0-11.0)
[2017-08-04 06:08] LABS: ABSOLUTE RETIC COUNT 0.0988 10^6/uL; OBSERVED RETIC COUNT 2.68 % (0.6-2.6)
[2017-08-04 06:15] LABS: CALCIUM 8.4 mg/dL (8.5-10.1); CREATININE 0.4 mg/dL (0.7-1.3); POTASSIUM 4.3 mmol/L (3.5-5.1)
[2017-08-04 06:22] LABS: % SATURATION 42 % (20-39); IRON 84 ug/dL (65-175); TIBC 202 ug/dL (250-450); UIBC 118 ug/dL
[2017-08-04 07:46] LABS: FOLIC ACID 37.7 ng/mL (8.6-58.9)
[2017-08-04 09:59] LABS: HEMATOCRIT 31.4 % (42.0-52.0); HEMOGLOBIN 10.8 gm/dL (14.0-18.0)
[2017-08-04 14:15] LABS: HEMOGLOBIN 10.6 gm/dL (14.0-18.0)
[2017-08-04 19:16] LABS: HEMATOCRIT 31.5 % (42.0-52.0); HEMOGLOBIN 10.7 gm/dL (14.0-18.0)
[2017-08-04 23:26] LABS: HEMATOCRIT 29.6 % (42.0-52.0); HEMOGLOBIN 10.3 gm/dL (14.0-18.0)
[2017-08-05] VITALS (26 sets, daily range): BP systolic 90–129; BP diastolic 48–69
[2017-08-05 05:03] LABS: ABSOLUTE NEUTROPHILS 4.1 thou/uL (1.4-8.2); BASOPHILS 0.6 % (0.0-2.0); EOSINOPHILS 4.9 % (0.0-3.0); HEMATOCRIT 29.7 % (42.0-52.0); HEMOGLOBIN 10.1 gm/dL (14.0-18.0); LYMPHOCYTES 25.5 % (24.0-44.0); MCH 30.5 pg (26.0-34.0); MCHC 33.9 g/dL (28.0-37.0); MCV 89.8 fL (80.0-100.0); MONOCYTES 7.2 % (1.0-8.0); PLATELET COUNT 175 thou/uL (150-400); POLYS 61.8 % (36.0-66.0); RBC 3.31 mil/uL (4.50-6.00); RDW 14.7 % (10.5-14.5); WBC 6.7 thou/uL (4.0-11.0)
[2017-08-05 05:04] LABS: MANUAL DIFF NO
[2017-08-05 05:20] LABS: CALCIUM 8.3 mg/dL (8.5-10.1); CREATININE 0.4 mg/dL (0.7-1.3); POTASSIUM 3.7 mmol/L (3.5-5.1)
[2017-08-05 08:48] LABS: HEMATOCRIT 28.6 % (42.0-52.0); HEMOGLOBIN 9.9 gm/dL (14.0-18.0)
[2017-08-05 14:47] LABS: HEMATOCRIT 31.5 % (42.0-52.0); HEMOGLOBIN 10.2 gm/dL (14.0-18.0)
[2017-08-05] MEDS ORDERED: ATORVASTATIN CA40 MG PER TUBE (16:32)
[2017-08-05] MEDS ORDERED: ASPIR 8181 M1 PER TUBE (16:32)
[2017-08-05] MEDS ORDERED: NORCO 10-325 T1 EACH PER TUBE (16:33)
[2017-08-05] MEDS ORDERED: LIDODERM1 EACH TOP (16:34)
[2017-08-05] MEDS ORDERED: PLAVIX 75 MG TA75 M1 PER TUBE (16:37)
[2017-08-05] MEDS ORDERED: EQL FIRST AID A28 GM TOP (16:37)
[2017-08-05] MEDS ORDERED: CARISOPRODOL 3350 MG PER TUBE (16:38)
[2017-08-05] MEDS ORDERED: VENTOLIN HFA 1818 GM INH (16:38)
[2017-08-05] MEDS ORDERED: EFFEXOR XR75 MG PER TUBE (16:39)
[2017-08-05 23:40] LABS: HEMATOCRIT 29.2 % (42.0-52.0)
[2017-08-06 03:54] VITALS: BP 121/64
[2017-08-06 06:13] LABS: ABSOLUTE NEUTROPHILS 3.3 thou/uL (1.4-8.2); BASOPHILS 0.6 % (0.0-2.0); EOSINOPHILS 5.2 % (0.0-3.0); HEMATOCRIT 28.7 % (42.0-52.0); HEMOGLOBIN 9.6 gm/dL (14.0-18.0); LYMPHOCYTES 25.9 % (24.0-44.0); MCH 30.2 pg (26.0-34.0); MCHC 33.3 g/dL (28.0-37.0); MCV 90.6 fL (80.0-100.0); MONOCYTES 7.6 % (1.0-8.0); PLATELET COUNT 168 thou/uL (150-400); POLYS 60.7 % (36.0-66.0); RBC 3.17 mil/uL (4.50-6.00); RDW 14.9 % (10.5-14.5); WBC 5.4 thou/uL (4.0-11.0)
[2017-08-06 06:21] LABS: MANUAL DIFF NO
[2017-08-06 06:23] LABS: CALCIUM 8.2 mg/dL (8.5-10.1); CREATININE 0.5 mg/dL (0.7-1.3); POTASSIUM 3.4 mmol/L (3.5-5.1)
[2017-08-06 08:08] VITALS: BP 106/50
[2017-08-06 12:06] VITALS: BP 120/63
[2017-08-06 20:00] VITALS: BP 125/59
[2017-08-07 04:00] VITALS: BP 131/61
[2017-08-07 08:50] VITALS: BP 118/57
[2017-08-07 11:45] VITALS: BP 114/55
[2017-08-07 15:40] VITALS: BP 124/63
[2017-08-07 19:03] VITALS: BP 128/68
[2017-08-08] VITALS (7 sets, daily range): BP systolic 121–150; BP diastolic 54–88
[2017-08-08 05:20] LABS: ABSOLUTE NEUTROPHILS 4.4 thou/uL (1.4-8.2); BASOPHILS 0.6 % (0.0-2.0); EOSINOPHILS 4.8 % (0.0-3.0); HEMATOCRIT 31.6 % (42.0-52.0); HEMOGLOBIN 10.4 gm/dL (14.0-18.0); LYMPHOCYTES 19.2 % (24.0-44.0); MCH 29.7 pg (26.0-34.0); MCHC 32.9 g/dL (28.0-37.0); MONOCYTES 7.7 % (1.0-8.0); PLATELET COUNT 205 thou/uL (150-400); POLYS 67.7 % (36.0-66.0); RBC 3.51 mil/uL (4.50-6.00); RDW 15.3 % (10.5-14.5); WBC 6.4 thou/uL (4.0-11.0)
[2017-08-08 05:29] LABS: MANUAL DIFF NO
[2017-08-08 05:35] LABS: CALCIUM 8.6 mg/dL (8.5-10.1); CREATININE 0.4 mg/dL (0.7-1.3); POTASSIUM 3.4 mmol/L (3.5-5.1)
[2017-08-09] VITALS (11 sets, daily range): BP systolic 125–165; BP diastolic 62–83
[2017-08-09 05:55] LABS: ABSOLUTE NEUTROPHILS 4.8 thou/uL (1.4-8.2); BASOPHILS 0.5 % (0.0-2.0); EOSINOPHILS 4.8 % (0.0-3.0); HEMATOCRIT 34.2 % (42.0-52.0); HEMOGLOBIN 11.3 gm/dL (14.0-18.0); LYMPHOCYTES 17.9 % (24.0-44.0); MCH 29.6 pg (26.0-34.0); MCHC 32.9 g/dL (28.0-37.0); MONOCYTES 8.1 % (1.0-8.0); PLATELET COUNT 222 thou/uL (150-400); POLYS 68.7 % (36.0-66.0); RDW 15.1 % (10.5-14.5)
[2017-08-09 05:56] LABS: MANUAL DIFF NO
[2017-08-09 06:11] LABS: CALCIUM 9.1 mg/dL (8.5-10.1); CREATININE 0.5 mg/dL (0.7-1.3); POTASSIUM 3.3 mmol/L (3.5-5.1)
[2017-08-10 00:05] VITALS: BP 131/61
[2017-08-10 04:15] VITALS: BP 139/77
[2017-08-10 08:47] VITALS: BP 126/74
[2017-08-10 17:13] VITALS: BP 135/74
[2017-08-10 17:15] VITALS: BP 145/85
[2017-08-10 19:40] VITALS: BP 157/75
[2017-08-11] VITALS (29 sets, daily range): BP systolic 84–160; BP diastolic 39–100
[2017-08-11 05:58] LABS: CALCIUM 8.9 mg/dL (8.5-10.1); CREATININE 0.7 mg/dL (0.7-1.3); POTASSIUM 3.8 mmol/L (3.5-5.1)
[2017-08-11 06:51] LABS: ABG SAMPLE TYPE ARTERIAL; BE(vivo) 1.3 mmol/L (-2 to +3); HCO3 25.7 mmol/L (22.0-26.0); LACTATE 1.44 mmol/L (0.5-2.0); O2(CT) 15.5 mL/dL (15.0-23.0); O2Hb 88.1 % (92.0-98.0); PO2 55.2 mmHg (80.0-100.0); pH 7.426 (7.360-7.450); sO2 89.5 % (92.0-98.0); tCO2 26.9 mmol/L (24.0-30.0)
[2017-08-11 06:52] LABS: STICK SITE R.BRACHIAL
[2017-08-11 08:20] LABS: HEMATOCRIT 33.7 % (42.0-52.0); HEMOGLOBIN 11.2 gm/dL (14.0-18.0); MCH 29.7 pg (26.0-34.0); MCHC 33.1 g/dL (28.0-37.0); MCV 89.9 fL (80.0-100.0); PLATELET COUNT 229 thou/uL (150-400); RBC 3.75 mil/uL (4.50-6.00); RDW 15.2 % (10.5-14.5); WBC 15.9 thou/uL (4.0-11.0)
[2017-08-11 08:24] LABS: MANUAL DIFF YES
[2017-08-11 09:26] LABS: PLATELET ESTIMATE NORMAL; TOTAL CELL COUNT 100
[2017-08-11 09:27] LABS: ANISOCYTOSIS SLIGHT
[2017-08-12] VITALS (23 sets, daily range): BP systolic 91–120; BP diastolic 33–96
[2017-08-12 05:50] LABS: HEMATOCRIT 27.6 % (42.0-52.0); MCHC 33.3 g/dL (28.0-37.0); MCV 90.1 fL (80.0-100.0); PLATELET COUNT 225 thou/uL (150-400); RBC 3.06 mil/uL (4.50-6.00); RDW 15.1 % (10.5-14.5); WBC 9.7 thou/uL (4.0-11.0)
[2017-08-12 05:51] LABS: HEMOGLOBIN 9.2 gm/dL (14.0-18.0); MANUAL DIFF YES
[2017-08-12 05:51] LABS: ABG SAMPLE TYPE ARTERIAL; O2(CT) 13.2 mL/dL (15.0-23.0); O2Hb 95.9 % (92.0-98.0); PCO2 37.5 mmHg (35.0-45.0); PO2 87.5 mmHg (80.0-100.0); STICK SITE R.RADIAL; pH 7.442 (7.360-7.450); tCO2 26.2 mmol/L (24.0-30.0)
[2017-08-12 05:59] LABS: CALCIUM 8.3 mg/dL (8.5-10.1); CREATININE 0.5 mg/dL (0.7-1.3); POTASSIUM 3.8 mmol/L (3.5-5.1)
[2017-08-12 07:08] LABS: TOTAL CELL COUNT 100
[2017-08-13] VITALS: BP 130/72
[2017-08-13 06:18] LABS: ABSOLUTE NEUTROPHILS 6.3 thou/uL (1.4-8.2); BASOPHILS 0.5 % (0.0-2.0); EOSINOPHILS 5.1 % (0.0-3.0); HEMATOCRIT 28.5 % (42.0-52.0); HEMOGLOBIN 9.4 gm/dL (14.0-18.0); LYMPHOCYTES 10.2 % (24.0-44.0); MCH 29.5 pg (26.0-34.0); MCHC 32.9 g/dL (28.0-37.0); MCV 89.5 fL (80.0-100.0); PLATELET COUNT 259 thou/uL (150-400); POLYS 76.2 % (36.0-66.0); RBC 3.18 mil/uL (4.50-6.00); WBC 8.3 thou/uL (4.0-11.0)
[2017-08-13 06:29] LABS: MANUAL DIFF NO
[2017-08-13 06:31] LABS: CALCIUM 8.7 mg/dL (8.5-10.1); CREATININE 0.6 mg/dL (0.7-1.3); POTASSIUM 3.2 mmol/L (3.5-5.1)
[2017-08-13 10:09] LABS: MAGNESIUM 2.1 mg/dL (1.8-2.4)
[2017-08-13 12:07] VITALS: BP 128/60
[2017-08-13 15:24] VITALS: BP 124/66
[2017-08-13 19:47] VITALS: BP 133/81
[2017-08-14 04:30] VITALS: BP 126/65
[2017-08-14 04:43] LABS: ABSOLUTE NEUTROPHILS 7.5 thou/uL (1.4-8.2); BASOPHILS 0.9 % (0.0-2.0); EOSINOPHILS 4.2 % (0.0-3.0); HEMATOCRIT 28.7 % (42.0-52.0); HEMOGLOBIN 9.5 gm/dL (14.0-18.0); LYMPHOCYTES 11.8 % (24.0-44.0); MCH 29.6 pg (26.0-34.0); MCHC 33.1 g/dL (28.0-37.0); MCV 89.4 fL (80.0-100.0); MONOCYTES 9.6 % (1.0-8.0); PLATELET COUNT 297 thou/uL (150-400); POLYS 73.5 % (36.0-66.0); RDW 15.3 % (10.5-14.5); WBC 10.2 thou/uL (4.0-11.0)
[2017-08-14 04:44] LABS: MANUAL DIFF NO
[2017-08-14 04:54] LABS: CALCIUM 8.6 mg/dL (8.5-10.1); CREATININE 0.6 mg/dL (0.7-1.3); POTASSIUM 3.2 mmol/L (3.5-5.1)
[2017-08-14 09:35] VITALS: BP 121/60
[2017-08-14 14:19] VITALS: BP 141/64
[2017-08-14 17:33] VITALS: BP 123/60
[2017-08-14 20:00] VITALS: BP 131/48
[2017-08-15 04:00] VITALS: BP 127/69
[2017-08-15 05:05] LABS: ABSOLUTE NEUTROPHILS 7.5 thou/uL (1.4-8.2); BASOPHILS 1.1 % (0.0-2.0); EOSINOPHILS 5.4 % (0.0-3.0); HEMATOCRIT 28.8 % (42.0-52.0); HEMOGLOBIN 9.4 gm/dL (14.0-18.0); LYMPHOCYTES 12.2 % (24.0-44.0); MCH 29.1 pg (26.0-34.0); MCHC 32.5 g/dL (28.0-37.0); MCV 89.3 fL (80.0-100.0); MONOCYTES 7.8 % (1.0-8.0); PLATELET COUNT 323 thou/uL (150-400); POLYS 73.5 % (36.0-66.0); RBC 3.23 mil/uL (4.50-6.00); RDW 15.3 % (10.5-14.5); WBC 10.1 thou/uL (4.0-11.0)
[2017-08-15 05:11] LABS: MANUAL DIFF NO
[2017-08-15 05:16] LABS: CALCIUM 8.5 mg/dL (8.5-10.1); CREATININE 0.5 mg/dL (0.7-1.3); POTASSIUM 3.4 mmol/L (3.5-5.1)
[2017-08-15 07:40] VITALS: BP 105/63
[2017-08-15 12:00] VITALS: BP 108/56
[2017-08-15 16:00] VITALS: BP 122/48
[2017-08-15 20:20] VITALS: BP 128/55
[2017-08-16 05:40] VITALS: BP 154/63
[2017-08-16 06:36] LABS: ABSOLUTE NEUTROPHILS 8.9 thou/uL (1.4-8.2); BASOPHILS 0.6 % (0.0-2.0); EOSINOPHILS 3.1 % (0.0-3.0); HEMATOCRIT 28.4 % (42.0-52.0); HEMOGLOBIN 9.3 gm/dL (14.0-18.0); LYMPHOCYTES 10.5 % (24.0-44.0); MCH 28.6 pg (26.0-34.0); MCHC 32.6 g/dL (28.0-37.0); MCV 87.7 fL (80.0-100.0); MONOCYTES 9.4 % (1.0-8.0); PLATELET COUNT 331 thou/uL (150-400); POLYS 76.4 % (36.0-66.0); RBC 3.24 mil/uL (4.50-6.00); RDW 15.4 % (10.5-14.5); WBC 11.6 thou/uL (4.0-11.0)
[2017-08-16 06:41] LABS: MANUAL DIFF NO
[2017-08-16 06:50] LABS: CALCIUM 8.7 mg/dL (8.5-10.1); CREATININE 0.6 mg/dL (0.7-1.3); POTASSIUM 3.7 mmol/L (3.5-5.1)
[2017-08-16 07:46] VITALS: BP 113/61
[2017-08-16 12:26] VITALS: BP 131/52
[2017-08-16] MEDS ORDERED: AUGMENTIN 875-1 EACH PO (15:47)
[2017-08-16 16:39] VITALS: BP 135/64
[2017-08-16 20:00] VITALS: BP 145/55
[2017-08-17 03:55] VITALS: BP 106/51
[2017-08-17 08:30] VITALS: BP 109/50
[2017-08-17 10:39] LABS: HEMATOCRIT 29.4 % (42.0-52.0); HEMOGLOBIN 9.5 gm/dL (14.0-18.0); MCH 28.7 pg (26.0-34.0); MCHC 32.5 g/dL (28.0-37.0); MCV 88.2 fL (80.0-100.0); PLATELET COUNT 323 thou/uL (150-400); RBC 3.33 mil/uL (4.50-6.00); RDW 15.5 % (10.5-14.5); WBC 15.5 thou/uL (4.0-11.0)
[2017-08-17 10:42] LABS: MANUAL DIFF YES
[2017-08-17 10:50] LABS: CALCIUM 8.3 mg/dL (8.5-10.1); CREATININE 0.6 mg/dL (0.7-1.3); POTASSIUM 3.9 mmol/L (3.5-5.1)
[2017-08-17 11:03] LABS: ABSOLUTE NEUTROPHILS 14.1 thou/uL (1.4-8.2); PLATELET ESTIMATE NORMAL; TOTAL CELL COUNT 100
[2017-08-17 11:33] LABS: URINE BILIRUBIN NEGATIVE (Negative); URINE BLOOD NEGATIVE (Negative); URINE COLOR YELLOW; URINE GLUCOSE-RANDOM* NEGATIVE (Negative); URINE KETONES NEGATIVE (Negative); URINE LEUKOCYTES-REFLEX NEGATIVE (Negative); URINE PROTEIN (DIPSTICK) TRACE (Negative); URINE SPECIFIC GRAVITY 1.015 (1.003-1.035); URINE UROBILINOGEN 0.2 E.U./dl (0.2-1.0)
[2017-08-17 12:00] VITALS: BP 102/47
[2017-08-17 16:13] VITALS: BP 102/38
[2017-08-17 20:45] VITALS: BP 131/49
[2017-08-18 05:00] VITALS: BP 124/48
[2017-08-18 06:33] LABS: HEMATOCRIT 24.7 % (42.0-52.0); HEMOGLOBIN 8.1 gm/dL (14.0-18.0); MCH 28.4 pg (26.0-34.0); MCHC 32.7 g/dL (28.0-37.0); MCV 86.7 fL (80.0-100.0); RBC 2.85 mil/uL (4.50-6.00); RDW 15.8 % (10.5-14.5); WBC 15.2 thou/uL (4.0-11.0)
[2017-08-18 06:37] LABS: CALCIUM 8.4 mg/dL (8.5-10.1); CREATININE 0.7 mg/dL (0.7-1.3); POTASSIUM 3.6 mmol/L (3.5-5.1)
[2017-08-18 08:52] VITALS: BP 126/49
[2017-08-18 11:54] VITALS: BP 117/54
[2017-08-18 16:53] VITALS: BP 127/45
[2017-08-19 04:20] VITALS: BP 127/48
[2017-08-19 08:00] VITALS: BP 117/57
[2017-08-19 09:55] LABS: HEMATOCRIT 26.2 % (42.0-52.0); HEMOGLOBIN 8.6 gm/dL (14.0-18.0); MCH 28.4 pg (26.0-34.0); MCHC 32.7 g/dL (28.0-37.0); MCV 86.8 fL (80.0-100.0); PLATELET COUNT 365 thou/uL (150-400); RBC 3.02 mil/uL (4.50-6.00); WBC 12.3 thou/uL (4.0-11.0)
[2017-08-19 09:57] LABS: MANUAL DIFF YES
[2017-08-19 10:13] LABS: CALCIUM 8.8 mg/dL (8.5-10.1); CREATININE 0.6 mg/dL (0.7-1.3); POTASSIUM 3.8 mmol/L (3.5-5.1)
[2017-08-19 11:09] LABS: ABSOLUTE NEUTROPHILS 10.6 thou/uL (1.4-8.2); TOTAL CELL COUNT 100
[2017-08-19 11:11] LABS: ANISOCYTOSIS 1+
[2017-08-19 16:00] VITALS: BP 123/70
[2017-08-19 20:00] VITALS: BP 105/65
[2017-08-20 05:40] VITALS: BP 109/66
[2017-08-20 09:01] VITALS: BP 115/74
[2017-08-20 12:23] VITALS: BP 121/64
[2017-08-20 16:57] VITALS: BP 145/61
[2017-08-20 20:00] VITALS: BP 141/68
[2017-08-21 04:00] VITALS: BP 134/60
[2017-08-21 06:32] LABS: HEMOGLOBIN 8.8 gm/dL (14.0-18.0); MCH 28.5 pg (26.0-34.0); MCHC 32.5 g/dL (28.0-37.0); MCV 87.5 fL (80.0-100.0); RBC 3.09 mil/uL (4.50-6.00); RDW 16.2 % (10.5-14.5); WBC 8.1 thou/uL (4.0-11.0)
[2017-08-21 06:46] LABS: CALCIUM 9.1 mg/dL (8.5-10.1); CREATININE 0.6 mg/dL (0.7-1.3); POTASSIUM 4.1 mmol/L (3.5-5.1)
[2017-08-21 09:20] VITALS: BP 120/71
[2017-08-21 12:00] VITALS: BP 122/56
[2017-08-21 16:20] VITALS: BP 116/57
[2017-08-21 20:00] VITALS: BP 120/55
[2017-08-22 05:30] VITALS: BP 119/52
[2017-08-22 08:13] VITALS: BP 134/65
[2017-08-22 13:11] VITALS: BP 135/72
== END 2017-08-22 16:36 | DRG 853 ==
LOC: ICU 20:33 → 3W 08-05 18:06 → ICU 08-11 07:16 → 3W 08-13 00:11
PROVIDERS: Family Medicine; Hospitalist; Internal Medicine Gastroenterology; Internal Medicine Pulmonary Disease; Nurse Practitioner Family
DX: A41.9 Sepsis, unspecified organism (principal); E43 Unspecified severe protein-calorie malnutrition; J69.0 Pneumonitis due to inhalation of food and vomit; J96.01 Acute respiratory failure with hypoxia; C18.9 Malignant neoplasm of colon, unspecified; K92.2 Gastrointestinal hemorrhage, unspecified; K42.0 Umbilical hernia with obstruction, without gangrene; J98.11 Atelectasis; I69.351 Hemiplegia and hemiparesis following cerebral infarction affecting right dominant side; J44.9 Chronic obstructive pulmonary disease, unspecified; E78.5 Hyperlipidemia, unspecified; M21.951 Unspecified acquired deformity of right thigh; R13.10 Dysphagia, unspecified; K76.9 Liver disease, unspecified; D64.9 Anemia, unspecified; D36.9 Benign neoplasm, unspecified site; Z90.49 Acquired absence of other specified parts of digestive tract; Z88.6 Allergy status to analgesic agent; Z80.9 Family history of malignant neoplasm, unspecified; Z87.81 Personal history of (healed) traumatic fracture; Z23 Encounter for immunization; Z68.37 Body mass index [BMI] 37.0-37.9, adult
CPT/HCPCS: 10078; 10779; 49000; 50010; 50093; 50101; 50249; 50386; 50555; 50558; 50953; 51435; 51708; 51712; 52265; 54022; 56524; 56525; 56526; 56527; 56530; 56641; 57092; 62110; 62900; 64029; 70005

== ENCOUNTER 2018-01-11 08:48 | Inpatient (IN) | payer OTHER ==
[~2018-01-11] VITALS: Ht 190.5 cm; Wt 118.8 kg
--- NOTE | ~2018-01-11 | O ---
[facility] [place] [address] OPERATIVE REPORT Name: SYLVIASHIRA Armendariz Room #: 419-P ADM IN M.R.#: [id number] Admission: 01/25/18 Attend Phys: Rigoberto Magana MD, F Discharge: Date of : 48 Report #: [id number] THIS REPORT FOR: //name// CC: MAR physician/PCP Richie Magana DATE OF SERVICE: 01/25/2018 PREOPERATIVE DIAGNOSES: 1. Recurrent incisional ventral hernia. 2. History of cerebrovascular accident. 3. Dysphagia. 4. Expressive aphasia. 5. Chronic obstructive pulmonary disease. POSTOPERATIVE DIAGNOSES: 1. Recurrent incarcerated incisional ventral hernia. 2. Intraabdominal adhesions. 3. History of cerebrovascular accident. 4. Dysphagia. 5. Expressive aphasia. 6. Chronic obstructive pulmonary disease. PROCEDURES: 1. Open repair of recurrent incarcerated incisional ventral hernia with Phasix mesh onlay. 2. Lysis of adhesions, lasting 63 minutes. 3. BUBBA dressing. SURGEON: Rigoberto Magana M.D. INSTRUCTOR BRIDGE: Fabrice Reid D.O. ANESTHESIA: General endotracheal anesthesia and local anesthetic. ESTIMATED BLOOD LOSS: 10 mL. SPECIMEN: Hernia sac. COMPLICATIONS: None appreciated. INDICATIONS FOR PROCEDURE: This is a 67-year-old male patient of Dr. 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 The patient has a history of COPD and expressive [facility] [address] [place] [address] OPERATIVE REPORT Name: SHIRA WARD Room #: 419-P ADM IN M.R.#: [id number] Admission: 01/25/18 Attend Phys: Rigoberto Magana MD, F Discharge: Date of : 48 Report #: [id number] aphasia after suffering a left hemispheric stroke. He denies a change in his bowel habits. Exam revealed an upper abdominal ventral hernia without overlying erythema or edema. The patient presents now for open repair of his hernia. The open approach was chosen as the patient has a PEG tube in place for dysphagia. OPERATIVE FINDINGS: The patient's incisional ventral hernia was 11 cm long x 5 cm wide after the dissection. There was a [place] cheese component to the hernia. The hernia did not extend the entire length of his previous midline incision. Omentum, small bowel and colon incarcerated into the defect. The bowel and colon were viable. Intraabdominal adhesions were also present. The defect was amenable to primary closure without tension. A Phasix onlay was placed due to the slight infectious risks of secondary to the PEG tube. At the conclusion of the operation, the sponge, needle and instrument counts were correct. DESCRIPTION OF PROCEDURE IN DETAIL: After the risks, benefits and expectations of the operation were discussed in detail with the patient, informed consent was obtained. The patient was identified in the preoperative holding area. He was given IV antibiotics as documented in the chart in line with the SCIP metrics. The patient was then taken to the operating room and he was placed in the supine position. SCDs were placed on the patient's bilateral lower extremities and pneumatic compression was initiated. The patient was then given IV sedation and he was intubated without incident. His abdomen was prepped and draped in the standard sterile fashion. A time-out was then performed to identify the correct patient and procedure. A sharp #10-blade scalpel was used to make a vertical upper midline incision above and on to the old vertical midline scar. Dissection was carried down to the fascia with electrocautery. The fascia was opened above the scar and the abdominal cavity was entered. The hernia sac was then dissected off of the fascia. The hernia sac was opened and excised with electrocautery to be sent for specimen. Bleeding points were made hemostatic during the dissection. Adhesiolysis was undertaken next. The adhesions from the colon, omentum and small bowel were carefully taken down with judicious use of electrocautery. The fascial defect was ultimately defined. Dissection was carried out superficial to the fascia and the subcutaneous space, a distance of 5-7 cm laterally on each side as well as a couple of centimeters above and below the defect. The fascia was approximated and was not felt to be under any undue tension. A running #1 PDS suture was then used to close the fascial defect. The defect had been measured and the appropriate size 10 cm wide x 15 cm long mesh patch was chosen for the onlay. The mesh was placed within the subcutaneous space and secured to the underlying tissue with interrupted 3-0 PDS sutures around the periphery as well as along the midline. The wound was then irrigated. Hemostasis was ensured. A running 3-0 Vicryl suture was then [address] [address] OPERATIVE REPORT Name: SHIRA WARD Room #: 419-P [facility] IN M.R.#: [id number] Admission: 01/25/18 Attend Phys: Rigoberto Magana MD, F Discharge: Date of : 48 Report #: [id number] used to approximate this subdermal tissue. [place] were used for skin closure. The skin was then cleansed and dried. Mastisol was applied to the skin. A BUBBA dressing was then placed over the staple line. The patient tolerated the procedure well. He was awakened, extubated and taken to recovery room in stable condition with no apparent intraoperative complications. <ELECTRONICALLY SIGNED> By: Rigoberto Magana MD, FACS 01/26/18 0735 1112 1140 Rigoberto Magana MD, FACS /nt
--- NOTE | ~2018-01-11 | S ---
[facility] [place] [address] SURGICAL PATH RPT PROCEDURE Name: SHIRA WARD Kala Room #: 419-P ADM IN M.R.#: [id number] Admission: 01/25/18 Date of : 48 Discharge: Report #: [id number] Path Case #: [id number] PATHOLOGY REPORT COLLECTION DATE: 01/25/2018 RECEIVED DATE: 01/25/2018 SUBMITTING PHYS: Dr. Rigoberto Magana OTHER PHYS: Dr. Fabrice Reid, SPECIMEN(S) RECEIVED: A.Hernia sac * * * * * * * * * * * * FINAL DIAGNOSIS: Hernia sac, repair: - Fibroadipose and fibrovascular connective tissue with reactive changes, compatible with hernia sac. (IUV:mgr; 01/26/2018) PATHOLOGIST: Isabel Cavazos M.D. REPORT ELECTRONICALLY SIGNED BY: Isabel Cavazos M.D. DATE/TIME: 01/26/2018 16:15 * * * * * * * * * * * * GROSS PATHOLOGY: Received in formalin labeled "Shira Ward, hernia sac" and consists of pink purple fragment of fibromembranous tissue and yellow orange fragments of adipose tissue aggregating to 8.0 x 7.5 x 3.5 cm. Sectioning reveals no masses or lesions. Naphthol Soaping Machine Operator sections are submitted as A1. (JEFFY; 01/25/2018) CLINICAL HISTORY: Ventral hernia INITIAL CPT CODE(S): A; 00213 Professional services performed by [facility] at [facility] [address], [place] [address] Technical services performed by [facility] at [address] [place] [address]. [facility] [address] [address] SURGICAL PATH RPT PROCEDURE Name: SHIRA WARD Room #: 419-P ADM IN M.R.#: [id number] Admission: 01/25/18 Date of : 48 Discharge: Report #: [id number] Path Case #: [id number] [facility] [address] [place] [address] PHONE: [phone] DIRECTOR: Iván Garcia M.D. * * * END OF REPORT * * *
--- NOTE | ~2018-01-11 | HC ---
[facility] [place] [address] CONSULTATION Name: SHIRA WARD Room #: 419-P ADM IN M.R.#: [id number] Admission: 01/25/18 Attend Phys: Rigoberto Magana MD, F Discharge: Date of : 48 Report #: [id number] THIS REPORT FOR: //name// CC: [facility] physician/PCP Rigoberto Magana MD DATE OF SERVICE: 01/25/2018 REFERRING PROVIDER: Rigoberto Magana M.D. REASON FOR CONSULTATION: History of respiratory insufficiency and chronic obstructive pulmonary disease. HISTORY OF PRESENT ILLNESS: Our group was asked to see the patient in consultation while hospitalized at [facility], is immediately postop after having incarcerated incisional ventral hernia repair. The patient is awake, although has an expressive aphasia. Denies any pain, shortness of breath or much cough at this time. No fevers, chills or sweats. The patient had been seen by us back in August when hospitalized with atelectasis, pneumonia, and respiratory insufficiency. Currently, he is doing very well postoperatively on low flow oxygen cannula. Typically, by his report, does not require any supplemental oxygen at home, unable to get much further history from the patient. ALLERGIES: INCLUDE CODEINE. PAST MEDICAL HISTORY: 1. Chronic obstructive pulmonary disease. 2. Prior cerebrovascular accident with expressive aphasia and dysphagia. 3. Colon cancer. Colon cancer was resected in 07/2017. 4. Underlying liver disease. CURRENT INPATIENT MEDICATIONS: 1. Ancef. 2. Benadryl p.r.n. 3. Enoxaparin. 4. Famotidine. 5. P.r.n. fentanyl. 6. Phenergan p.r.n. SOCIAL HISTORY: Unobtainable from the patient due to his current status, though he denies tobacco or alcohol use at this time, prior use of both. FAMILY HISTORY: Unobtainable. [facility] [address] [place] [address] CONSULTATION Name: SHIRA WARD Room #: 419-P [facility] IN [facility]#: [id number] Admission: 01/25/18 Attend Phys: Rigoberto Magana MD, F Discharge: Date of : 48 Report #: [id number] REVIEW OF SYSTEMS: Otherwise, unobtainable due to the patient's aphasic status. PHYSICAL EXAMINATION: VITAL SIGNS: Afebrile, pulse 60, respiratory rate 16, blood pressure 134/73. GENERAL: Obese elderly male, does not appear in distress. ENT: Clear oropharynx. NECK: Supple, no lymphadenopathy. LUNGS: Some wheezes. CARDIOVASCULAR: Heart regular. No murmurs noted. ABDOMEN: Has a binder in place, diminished bowel sounds. EXTREMITIES: Warm with 1+ pulses. There are some chronic venous stasis changes noted. LABORATORY DATA: White blood cell count 6000, hemoglobin 10, hematocrit 30, platelet count is 223. Sodium 142, potassium 4.3, chloride 108, bicarbonate 29, BUN 15, creatinine 0.7, glucose 87. Chest x-ray is pending. IMPRESSION: 1. Status post ventral hernia repair. 2. History of chronic obstructive pulmonary disease. 3. History of expressive aphasia. 4. Dysphagia. SUGGESTIONS: 1. Incentive spirometry. 2. DuoNebs, will use EzPAP for hyperinflation. 3. Mobilize as able. 4. DVT prophylaxis. 5. We will continue to follow. 6. Continuous oximetry. <ELECTRONICALLY SIGNED> By: Ruperto Figueroa MD 01/26/18 1123 1542 1752 Ruperto Figueroa MD /nt
[~2018-01-11 08:48] MED LIST: ASPIR 8181 M1 PO; ATORVASTATIN CA40 MG PO; AUGMENTIN 875-1 EACH PO; BIOFREEZE118 ML TOP; CARISOPRODOL 3350 MG PER TUBE; CARISOPRODOL 3350 MG PO; EFFEXOR XR75 MG PO; EQL FIRST AID A28 GM TOP; LIDODERM1 EACH TOP; MILK OF MA2400 MG/10 PO; NORCO 10-325 T1 EACH PO; NYAMYC15 GM TOP; PLAVIX 75 MG TA75 M1 PER TUBE; ROBITUSSIN100 MG/53 PO; TYLENOL325 MG PO; VENTOLIN HFA 1818 GM INH
[2018-01-25 06:52] LABS: HEMOGLOBIN 10.2 gm/dL (14.0-18.0); MCV 74.4 fL (80.0-100.0); RBC 4.43 mil/uL (4.50-6.00); RDW 18.2 % (10.5-14.5); WBC 5.7 thou/uL (4.0-11.0)
[2018-01-25 07:01] LABS: CALCIUM 8.7 mg/dL (8.5-10.1); CREATININE 0.7 mg/dL (0.7-1.3); POTASSIUM 4.3 mmol/L (3.5-5.1)
[2018-01-25 07:06] LABS: ALBUMIN 3.1 g/dL (3.4-5.0); TOTAL BILIRUBIN 0.2 mg/dL (<0.1-1.0)
[2018-01-25 08:00] VITALS: BP 134/73
[2018-01-25 19:36] VITALS: BP 151/78
[2018-01-26 01:27] VITALS: BP 157/78
[2018-01-26 03:41] VITALS: BP 148/74
[2018-01-26 06:39] LABS: ABSOLUTE NEUTROPHILS 6.6 thou/uL (1.4-8.2); BASOPHILS 0.3 % (0.0-2.0); EOSINOPHILS 0.1 % (0.0-3.0); HEMATOCRIT 32.6 % (42.0-52.0); HEMOGLOBIN 10.2 gm/dL (14.0-18.0); LYMPHOCYTES 11.4 % (24.0-44.0); MCHC 31.4 g/dL (28.0-37.0); MCV 73.3 fL (80.0-100.0); MONOCYTES 8.8 % (1.0-8.0); PLATELET COUNT 206 thou/uL (150-400); POLYS 79.4 % (36.0-66.0); RBC 4.45 mil/uL (4.50-6.00); RDW 18.1 % (10.5-14.5); WBC 8.3 thou/uL (4.0-11.0)
[2018-01-26 06:44] LABS: CALCIUM 8.6 mg/dL (8.5-10.1); CREATININE 0.5 mg/dL (0.7-1.3); POTASSIUM 3.6 mmol/L (3.5-5.1)
[2018-01-26 07:25] VITALS: BP 132/63
[2018-01-26 07:51] LABS: ANISOCYTOSIS 1+; HYPOCHROMASIA 1+; MICROCYTES 1+
[2018-01-26 15:55] VITALS: BP 175/85
[2018-01-26 20:00] VITALS: BP 142/72
[2018-01-27 04:30] VITALS: BP 146/79
[2018-01-27 06:19] LABS: BASOPHILS 0.3 % (0.0-2.0); EOSINOPHILS 0.3 % (0.0-3.0); HEMATOCRIT 35.3 % (42.0-52.0); HEMOGLOBIN 11.3 gm/dL (14.0-18.0); LYMPHOCYTES 7.9 % (24.0-44.0); MCH 23.4 pg (26.0-34.0); MCHC 31.9 g/dL (28.0-37.0); MCV 73.4 fL (80.0-100.0); MONOCYTES 8.6 % (1.0-8.0); PLATELET COUNT 237 thou/uL (150-400); POLYS 82.9 % (36.0-66.0); RDW 17.7 % (10.5-14.5); WBC 9.6 thou/uL (4.0-11.0)
[2018-01-27 06:25] LABS: CALCIUM 9.5 mg/dL (8.5-10.1); CREATININE 0.5 mg/dL (0.7-1.3); POTASSIUM 3.6 mmol/L (3.5-5.1)
[2018-01-27 07:20] VITALS: BP 145/82
[2018-01-27 07:47] LABS: ANISOCYTOSIS 1+; MICROCYTES 1+
[2018-01-27 20:16] VITALS: BP 131/75
[2018-01-27 23:45] VITALS: BP 127/65
[2018-01-28 03:04] VITALS: BP 127/59
[2018-01-28 04:20] LABS: BASOPHILS 0.6 % (0.0-2.0); EOSINOPHILS 2.6 % (0.0-3.0); HEMATOCRIT 35.2 % (42.0-52.0); MCH 22.9 pg (26.0-34.0); MCHC 31.2 g/dL (28.0-37.0); MCV 73.3 fL (80.0-100.0); MONOCYTES 9.3 % (1.0-8.0); PLATELET COUNT 182 thou/uL (150-400); POLYS 73.5 % (36.0-66.0); WBC 8.1 thou/uL (4.0-11.0)
[2018-01-28 04:30] LABS: CALCIUM 8.7 mg/dL (8.5-10.1); CREATININE 0.5 mg/dL (0.7-1.3); POTASSIUM 3.7 mmol/L (3.5-5.1)
[2018-01-28 07:30] VITALS: BP 118/56
[2018-01-28 15:25] VITALS: BP 117/65
[2018-01-28 19:35] VITALS: BP 117/72
[2018-01-29 04:27] VITALS: BP 142/75
[2018-01-29 20:05] VITALS: BP 130/55
[2018-01-30 04:18] VITALS: BP 143/72
[2018-01-30 07:35] VITALS: BP 131/69
[2018-01-30] MEDS ORDERED: LEVAQUIN 500 M500 M1 PO (10:07)
[2018-01-30] MEDS ORDERED: TRAMADOL 50 MG50 MG PO (10:08)
[2018-01-30 15:50] VITALS: BP 116/67
== END 2018-01-30 17:46 | DRG 335 ==
LOC: PRE 08:48 → TBA 01-25 05:18 → 4E 01-25 05:18 → PRE 01-25 08:24 → 4E 01-25 12:00
PROVIDERS: Surgery
DX: K43.0 Incisional hernia with obstruction, without gangrene (principal); J18.9 Pneumonia, unspecified organism; J44.0 Chronic obstructive pulmonary disease with (acute) lower respiratory infection; I69.351 Hemiplegia and hemiparesis following cerebral infarction affecting right dominant side; G82.20 Paraplegia, unspecified; K66.0 Peritoneal adhesions (postprocedural) (postinfection); R13.10 Dysphagia, unspecified; G89.29 Other chronic pain; M54.9 Dorsalgia, unspecified; F32.9 Major depressive disorder, single episode, unspecified; F41.9 Anxiety disorder, unspecified; K74.60 Unspecified cirrhosis of liver; Z87.891 Personal history of nicotine dependence; D64.9 Anemia, unspecified; E78.5 Hyperlipidemia, unspecified; I69.320 Aphasia following cerebral infarction; I69.391 Dysphagia following cerebral infarction; Z88.5 Allergy status to narcotic agent; Z99.3 Dependence on wheelchair
CPT/HCPCS: 10783; 50010; 50101; 50386; 50455; 51412; 54109; 56524; 56525; 56527; 57092; 62110; 62900; 64031; 70005